=== PATIENT | male | born 1960 | race Caucasian/White ===

== ENCOUNTER → 2017-05-03 | Day surgery (SDC) | payer OTHER ==
[~2017-05-03] MED LIST: ALLO300T2 PO; AMLO10TA2 PO; BENI40TA3 PO; CLON0.1T PO; LISI-515 PO; MOBI15TA PO; PROPOFOL 500 MG/50 ML BTL IV ONE; SIMV40TA PO; VOLT100T PO
--- NOTE | 2017-05-03 09:52 | GIPROC ---
[facility] [address] [facility], [address] COLONOSCOPY PROCEDURE REPORT EXAM DATE: 05/03/2017 PATIENT NAME: Chris Licea MR #: [id number] BIRTHDATE: 1960 ENDOSCOPIST: Charan Banuelos MD ORDER #: [id number] ZONE MANAGER: STATUS: outpatient INDICATIONS: The patient is a 56 yr old male here for a colonoscopy due to high risk patient with personal history of colonic polyps PROCEDURE PERFORMED: Colonoscopy with biopsy MEDICATIONS: None and Per Anesthesia. PREP QUALITY: good ESTIMATED BLOOD LOSS: None CONSENT: The patient understands the risks and benefits of the procedure and understands that these risks include, but are not limited to: sedation, allergic reaction, infection, perforation and/or bleeding. Alternative means of evaluation and treatment include, among others: physical exam, x-rays, and/or surgical intervention. The patient elects to proceed with this endoscopic procedure. medical equipment was checked for proper function. Hand hygiene and appropriate measures for infection prevention was taken. After the risks, benefits and alternatives of the procedure were thoroughly explained, Informed consent was verified, confirmed and timeout was successfully executed by the treatment team. A digital exam revealed no abnormalities of the rectum The EC-[id number] ([id number]) endoscope was introduced through the anus and advanced to the cecum, which was identified by both the appendix and ileocecal valve. The instrument was then slowly withdrawn as the colon was fully examined. COLON FINDINGS: Mild diverticulosis was noted in the descending colon and sigmoid colon. Medium sized lipoma was found in the descending colon. Multiple biopsies were performed. The colon mucosa was otherwise normal. Retroflexed views revealed internal hemorrhoids and Retroflexed views revealed small internal hemorrhoids The scope was then completely withdrawn from the patient and the procedure terminated. PROCEDURE WITHDRAWAL TIME:7.5minutes ADVERSE EVENTS: There were no complications. IMPRESSIONS: 1. Mild diverticulosis was noted in the descending colon and sigmoid colon 2. Medium sized lipoma in the descending colon; multiple biopsies were performed 3. The colon mucosa was otherwise normal 4. Retroflexed views revealed internal hemorrhoids 5. Retroflexed views revealed small internal hemorrhoids 6. Revealed no abnormalities of the rectum RECOMMENDATIONS: 1. Await biopsy results. Biopsy results will not be ready for 7-10 days. If you don't hear from us in two weeks, call our office for results. 2. High fiber diet 3. Yearly hemoccult 4. Follow-up: GI Clinic PRN RECALL: Return 5 years Colonoscopy Charan Banuelos MD eSigned: Charan Banuelos MD 05/03/2017 9:52 AM cc: Amanda Camejo [facility] Elisha and Aurora Taylor M.D. PATIENT NAME: Chris Licea MR#: [id number]
== END | disposition home or self-care (01) ==
LOC: ESDC 08:17
PROVIDERS: ATTEND Internal Medicine Gastroenterology
DX: Z12.11 Encounter for screening for malignant neoplasm of colon (principal); Z86.010 Personal history of colon polyps
CPT/HCPCS: 88304; 88305

== ENCOUNTER → 2017-08-02 | Day surgery (SDC) | payer OTHER ==
[~2017-08-02] VITALS: Ht 177.8 cm; Wt 165.0 kg
[~2017-08-02] MED LIST changes: +*RESP: ALBUTEROL 2.5 MG/3 ML NEB (PRN) PERIprocedural Use ONLY NEB ONE; +ACETAMINOPHEN/HYDROcodone 325 MG/5 MG TAB PO PRN; +BENI40TA29 PO; -BENI40TA3 PO; +CEPH-460 PO; +CHLORHEXIDINE GLUCONATE 2 % 1 PACK (2 CLOTHS) TOPICAL PRN; +COLC1CAP3 PO; +LACTATED RINGER'S 1000 ML IV PRN; +LIDOCAINE HCL 2% 50 ML VIAL ONE; +MEPERIDINE HCL 50 MG/ML VIAL IM PRN; +METOPROLOL TARTRATE 25 MG TAB PO PRN; +MOBI7.5T PO; +NEOMYCIN/POLYMYXIN 1 ML G.U. IRRIGANT ONE; +PERC5TAB12 PO; +POVIDONE IODINE 5% (ANTISEPSIS KIT) 4 APPLICATIONS EACH NARE PRN; -PROPOFOL 500 MG/50 ML BTL IV ONE; +ROPIVACAINE 0.5% PF INJ 30 ML VIAL ONE; +SODIUM CHLORID 0.9% 500 ML IV PRN; -VOLT100T PO; +ceFAZolin 2 GM PREMIX 50 ML IV SCH
--- NOTE | 2017-08-02 12:41 | EKG ---
Date Performed: 08/02/2017 Time Performed: 11:15:37 PTAGE: 56 years EKG: Sinus rhythm POSSIBLE INFERIOR MYOCARDIAL INFARCTION , PROBABLY OLD BORDERLINE ECG NO PREVIOUS TRACING DOCTOR: Jeremy Johnson Interpretating Date/Time 08/02/2017 12:40:47
[2017-08-02 18:05] VITALS: BP 141/77; PULSE 82; RESP 18; TEMP 98.3; O2SAT 93
--- NOTE | 2017-08-02 22:24 | MP ---
cc: ELIAS NIÑO III, M.D. DATE OF SURGERY: 08/02/2017 PREOPERATIVE DIAGNOSIS: Left first CMC arthritis. PROCEDURE 1. Left trapeziectomy and first CMC suspension arthroplasty. 2. Use of image intensifier SURGEON Elias Lira III, MD DESCRIPTION OF PROCEDURE: The patient was brought to the operating room and placed supine on the operating room table. After the correct site and side of surgery was verified by members of each team in the room multiple times, including patient and myself, and after adequate general anesthesia had been achieved, the left upper extremity was prepped and draped in traditional sterile surgical fashion. The mini C-arm was used to verify the site of intended procedure. The limb was exsanguinated. Incisions were diagrammed. The limb was exsanguinated with an Aram wrap and a highly placed well-padded axillary tourniquet inflated to 220 mmHg for a total of 82 minutes, incision with an angle was made dorsally over the first CMC joint. Blunt dissection was performed. Bipolar electrocautery was used as needed. The aponeurotic layer over the extensor tendons was very attenuated and the extensor tendons were already spread far apart. It was retracted and protected. The radial artery was identified and protected as well. A distally placed trap door incision was made in the capsule dorsally and the first CMC joint was opened and entered. The trapezium was verified on mini C-arm in real-time and the trapezium was excised in its entirety piecemeal fashion. It was found that there was denuded cartilage on several sides and had irregular shape especially in articulation with the first metacarpal. Thorough irrigation was performed. Four small separate 1 to 2 cm incisions were made volarly on the forearm overlying the flexor carpi radialis tendon. The ulnar half was harvested in its entire length with the radial half kept intact. It was brought up distally through the wound in the wrist. A drill hole was made through the base of the metacarpal and suspension arthroplasty was then performed by weaving the flexor carpi radialis tendon into itself and around itself. It was secure with multiple interrupted 2-0 Ethibond sutures. The articulation between the trapezoid and the scaphoid was also debrided so there was no abnormal painful articulation there. Thorough irrigation was performed several more times. The FCR tendon was secured to the capsule. The capsule was then closed once a spacer was made from the tendon remnant. The capsule was closed using 2-0 Ethibond sutures. The distal capsule of the scaphoid was used to secure the proximal aspect of the trap door distally based capsule keeping the base of the metacarpal and adducted. It was then completely closed using 2-0 Ethibond sutures. The axillary tourniquet was released and the hand and all the fingers on the left became immediately soft, pink and warm and had brisk capillary refill of less than two seconds. The radial artery did not have any sign of injury. There was no bleeding. It was soft, full, pulsatile and pink. The aponeurotic layer between the extensor tendons was then repaired using interrupted 3-0 Vicryl suture. The deep subcutaneous tissue was repaired using 3-0 Vicryl sutures and then the skin edges were reapproximated after thorough irrigation using running 4-0 nylon sutures. A thorough irrigation was performed on the left volar forearm and the skin edges were reapproximated using running 4-0 nylon sutures as well. The arm was thoroughly cleansed and dried. Betadine Adaptic dressings applied. Final x-rays were obtained. Betadine Adaptic dressings applied atop of the wounds and bulky soft dressing was applied over the operative field and then a well-padded, well-molded short-arm thumb spica splint was made in the usual fashion. The patient was awakened from anesthesia and transported to the Post Anesthesia Care Unit awake and in stable condition at the end of the case. Sponge, needle, and instrument counts were correct at the end of the case as reported by the nurses in the room. MD FREDERIC Turner III/ALYSSA /4:24 PM /9:30 PM
== END | disposition home or self-care (01) ==
LOC: HSDC 10:48
PROVIDERS: ATTEND Orthopaedic Surgery Hand Surgery
DX: M19.042 Primary osteoarthritis, left hand (principal); R94.31 Abnormal electrocardiogram [ECG] [EKG]
CPT/HCPCS: 01830; 25447; 26480; 93005; J0690; J2795; J7120; J7613